=== PATIENT | male | born 1955 | race Caucasian/White ===

== ENCOUNTER 2016-10-23 17:08 | Emergency (ER) | payer MEDICARE, OTHER ==
[~2016-10-23] VITALS: Ht 177.8 cm; Wt 106.0 kg
[~2016-10-23 17:08] MED LIST: AMBIEN 10MG10 MG PO; ANTI-DIARRHEAL2 MG PO; ASPIRIN E.C. 8181 MG PO; ATROVENT NASAL15 ML NS; BIOFREEZE 0.2%-1 GE1 TOP; CELLCEPT 250MG250 MG PO; COLACE 100100 MG/CAP PO; COUMADIN 22.5 MG/TAB PO; COUMADIN 5MG5 MG/TAB PO; DOXYCYCLINE 10100 MG PO; DUO-KAPS1 CAP PO; ELIQUIS 5MG PO; FISH OIL SUPER1 SGL PO; K-DUR 10 MEQ T10 MEQ PO; LANTUS100 U/ML; LANTUS100 U/ML SQ; LIDODERM 5% PATC1 EA TP; NASAL SPRAY 1515 ML NS; NEURONTIN100 MG/CAP PO; NEURONTIN300 MG/CAP PO; NIZORAL SHAMPO120 M1 TP; NOVOLOG 100U100 U/M1; NOVOLOG 100U100 U/M1 SQ; NOXAFILTAB PO; OMEGA 31000 MG PO; OXY IR5 MG PO; PAIN PATCH; PHOSLO667 MG PO; PREDNISONE 5MG5 MG PO; PREDNISONE10 MG PO; PROAMATINE 5MG T5 MG PO; PROGRAF 1MG1 MG PO; PROTONIX 40MG T40 MG PO; PROVENTIL0.09 MG/A1 IH; RISPERDAL 0.20.25 MG PO; ROXICODONE 55 MG/TAB PO; RT SPIRIVA18 MCG IH; ULTRAM 50MG TAB50 MG PO; VENTOLIN0.09 MG IH; ZADITOR 5 ML5 ML OU; ZYLOPRIM 100MG100 MG PO; ZYRTEC 10MG10 MG PO
[2016-10-23 17:11] VITALS: TEMP 98
[2016-10-23] MEDS ORDERED: [UNRECOGNIZED DRUG - OTHER] PO (17:33)
[2016-10-23] MEDS ORDERED: COUMADIN 22.5 MG/TAB PO (17:38)
[2016-10-23] MEDS ORDERED: COUMADIN 5MG5 MG/TAB PO (17:38)
[2016-10-23 17:42] LABS: BASO % 0.4 % (0.0-2.0); EOS % 0.1 % (0-4.0); GRAN # 5.1 (1.4-6.5); GRAN % 69.7 % (42.2-75.2); HEMATOCRIT 47.1 % (42.0-52.0); HEMOGLOBIN 15.2 g/dl (13.5-18.0); LYMPH # 1.6 (1.2-3.4); LYMPH % 21.4 % (20.0-51.0); MEAN CELL VOLUME 109 fl (80.0-100.0); MEAN CORPUSCULAR HEMOGLOBIN 35 pg (27.0-31.0); MEAN CORPUSCULAR HGB CONC 32 g/dl (33.0-37.0); MEAN PLATELET VOLUME 11.9 fl (7.4-10.4); MONO # 0.6 (0.1-0.6); MONO % 8.3 % (1.7-9.3); PLATELET COUNT 166 K/mm3 (130-400); RED BLOOD COUNT 4.31 M/mm3 (4.20-5.60); REDCELL DISTRIBUTION WIDTH-CV 18.6 % (11.5-14.5); WHITE BLOOD COUNT 7.3 K/mm3 (4.8-10.8)
[2016-10-23 17:44] LABS: INR 2.6 (0.8-3.0); PROTHROMBIN TIME 30.1 SECONDS (9.7-12.8)
[2016-10-23 17:47] LABS: PARTIAL THROMBOPLASTIN TIME 38.1 SECONDS (26.0-37.0)
[2016-10-23 17:53] LABS: ALANINE AMINOTRANSFERASE 38 U/L (21-72); ALBUMIN 4.4 gm/dL (3.5-5.0); ALKALINE PHOSPHATASE 52 U/L (50-136); ANION GAP 21 mmol/L (7-16); BILIRUBIN,TOTAL 0.9 mg/dL (0.0-1.0); BLOOD UREA NITROGEN 100 mg/dL (9-20); CALCIUM 8.3 mg/dL (8.4-10.2); CARBON DIOXIDE 24 mmol/L (22-30); CHLORIDE 97 mmol/L (98-107); GLUCOSE 138 mg/dL (74-106); POTASSIUM 4.5 mmol/L (3.4-5.0); SODIUM 141 mmol/L (137-145); TOTAL PROTEIN 7.4 gm/dL (6.4-8.2)
[2016-10-23 18:01] LABS: TROPONIN-I 0.013 ng/mL (0.000-0.034)
[2016-10-23 18:03] LABS: C-REACTIVE PROTEIN < 0.5 mg/dL (0.0-0.9)
[2016-10-23 19:07] VITALS: BP 98/51; PULSE 74
== END 2016-10-23 19:07 | disposition home or self-care (01) ==
LOC: COL.ER 17:08
PROVIDERS: Family Medicine
DX: R13.10 Dysphagia, unspecified (principal); I25.10 Atherosclerotic heart disease of native coronary artery without angina pectoris; E11.9 Type 2 diabetes mellitus without complications; N18.9 Chronic kidney disease, unspecified; I95.9 Hypotension, unspecified; Z79.82 Long term (current) use of aspirin; Z79.4 Long term (current) use of insulin; Z79.01 Long term (current) use of anticoagulants

== ENCOUNTER → 2017-04-27 | Outpatient (CLI) | payer MEDICARE, OTHER ==
[~2017-04-27] MED LIST changes: +[UNRECOGNIZED DRUG - OTHER] PO
== END ==
LOC: BHSO 10:40
DX: F31.73 Bipolar disorder, in partial remission, most recent episode manic (principal)
CPT/HCPCS: G0463

== ENCOUNTER → 2017-05-25 | Outpatient (CLI) | payer MEDICARE, OTHER | LOC: BHSO 09:01 | DX: F31.9 Bipolar disorder, unspecified (principal) | CPT/HCPCS: G0463 ==

== ENCOUNTER → 2017-07-21 | Outpatient (CLI) | payer MEDICARE, OTHER | LOC: BHSO 09:03 | DX: F31.9 Bipolar disorder, unspecified (principal) | CPT/HCPCS: G0463 ==

== ENCOUNTER → 2017-10-26 | Outpatient (CLI) | payer MEDICARE, OTHER | LOC: BHSO 10:00 | DX: F31.81 Bipolar II disorder (principal) | CPT/HCPCS: G0463 ==

== ENCOUNTER → 2018-02-03 | Outpatient (CLI) | payer MEDICARE, OTHER | LOC: BHSO 15:15 | DX: F31.81 Bipolar II disorder (principal) | CPT/HCPCS: G0463 ==

== ENCOUNTER → 2018-06-06 | Outpatient (CLI) | payer MEDICARE, OTHER | LOC: BHSO 14:56 | DX: F06.32 Mood disorder due to known physiological condition with major depressive-like episode (principal) | CPT/HCPCS: G0463 ==

== ENCOUNTER → 2018-07-04 | Outpatient (CLI) | payer MEDICARE, OTHER | LOC: ZCOL.LAB 16:11 | DX: E11.621 Type 2 diabetes mellitus with foot ulcer (principal) ==

== ENCOUNTER → 2018-08-28 | Outpatient (CLI) | payer MEDICARE, OTHER | LOC: BHSO 13:24 | DX: F06.32 Mood disorder due to known physiological condition with major depressive-like episode (principal) | CPT/HCPCS: G0463 ==

== ENCOUNTER → 2018-11-07 | Outpatient (CLI) | payer MEDICARE, OTHER | LOC: BHSO 14:18 | DX: F06.32 Mood disorder due to known physiological condition with major depressive-like episode (principal) ==

== ENCOUNTER → 2019-01-03 | Outpatient (CLI) | payer MEDICARE, OTHER | LOC: BHSO 13:55 | DX: F06.32 Mood disorder due to known physiological condition with major depressive-like episode (principal) | CPT/HCPCS: G0463 ==

== ENCOUNTER → 2019-04-25 | Outpatient (CLI) | payer MEDICARE, OTHER | LOC: BHSO 14:21 | DX: F06.32 Mood disorder due to known physiological condition with major depressive-like episode (principal) | CPT/HCPCS: G0463 ==

== ENCOUNTER → 2019-05-30 | Outpatient (CLI) | payer MEDICARE, OTHER | LOC: BHSO 13:22 | DX: F06.32 Mood disorder due to known physiological condition with major depressive-like episode (principal) | CPT/HCPCS: G0463 ==

== ENCOUNTER → 2020-01-28 | Outpatient (CLI) | payer MEDICARE, OTHER | LOC: ZCOL.LAB 16:10 | DX: E11.621 Type 2 diabetes mellitus with foot ulcer (principal) ==

== ENCOUNTER → 2020-02-25 | Outpatient (CLI) | payer MEDICARE, OTHER | LOC: ZCOL.LAB 22:02 | DX: E13.621 Other specified diabetes mellitus with foot ulcer (principal); L97.509 Non-pressure chronic ulcer of other part of unspecified foot with unspecified severity ==

== ENCOUNTER → 2021-05-21 | Outpatient (CLI) | payer MEDICARE, OTHER | LOC: ZCOL.LAB 16:19 | DX: L84 Corns and callosities (principal); E13.621 Other specified diabetes mellitus with foot ulcer; L97.509 Non-pressure chronic ulcer of other part of unspecified foot with unspecified severity; Z74.1 Need for assistance with personal care ==

== ENCOUNTER → 2021-06-08 | Outpatient (RCR) | payer OTHER | END | disposition home or self-care (01) | LOC: WSPT | DX: E11.40 Type 2 diabetes mellitus with diabetic neuropathy, unspecified (principal); E11.22 Type 2 diabetes mellitus with diabetic chronic kidney disease; E78.5 Hyperlipidemia, unspecified; M10.9 Gout, unspecified; N18.9 Chronic kidney disease, unspecified; D63.1 Anemia in chronic kidney disease; Z89.439 Acquired absence of unspecified foot ==

== ENCOUNTER 2021-06-10 08:22 | Outpatient (RCR) | payer MEDICARE, OTHER | END 2021-07-09 | disposition home or self-care (01) | LOC: WSPT | DX: R53.1 Weakness (principal) ==

== ENCOUNTER → 2021-07-28 | Outpatient (CLI) | payer MEDICARE, OTHER ==
[2021-07-28 07:30] LABS: INR 1.4 (0.8-3.0)
== END ==
LOC: ZCOL.LAB 07:17
PROVIDERS: Nurse Practitioner
DX: I25.10 Atherosclerotic heart disease of native coronary artery without angina pectoris (principal)

== ENCOUNTER 2024-03-02 13:45 | Inpatient (IN) | payer MEDICARE, OTHER ==
[2024-03-02] MEDS ORDERED: NORCO 325 MG-51 TAB PO (16:25)
[2024-03-02] MEDS ORDERED: TYLENOL 325MG325 MG PO (16:26)
[2024-03-02] MEDS ORDERED: LIPITOR 40MG TA40 MG PO (16:29)
[2024-03-02] MEDS ORDERED: CALCITRIOL PO (16:30)
[2024-03-02] MEDS ORDERED: SARNA ANTI-ITC222 ML TP (16:30)
[2024-03-02] MEDS ORDERED: ARICEPT10 MG PO (16:32)
[2024-03-02] MEDS ORDERED: SILENOR6 MG PO (16:32)
[2024-03-02] MEDS ORDERED: AURYXIA1 GM PO (16:33)
[2024-03-02] MEDS ORDERED: ALLEGRA 180MG180 MG PO (16:34)
[2024-03-02] MEDS ORDERED: EPA FISH OIL1 SGL PO (16:35)
[2024-03-02] MEDS ORDERED: FLORINEF ACETA0.1 MG PO (16:35)
[2024-03-02] MEDS ORDERED: ZADITOR 5 ML5 ML OP (16:36)
[2024-03-02] MEDS ORDERED: FLONASEALLERGY NS (16:36)
[2024-03-02] MEDS ORDERED: LAMICTAL 25MG T25 MG PO (16:37)
[2024-03-02] MEDS ORDERED: PROAMATINE10 MG PO (16:38)
[2024-03-02] MEDS ORDERED: BACTROBAN15 GM TOP (16:39)
[2024-03-02] MEDS ORDERED: ZYPREXA 5MG5 MG PO (16:40)
[2024-03-02] MEDS ORDERED: RISPERDAL 1M1 MG/TAB PO (16:42)
[2024-03-02] MEDS ORDERED: LYRICA 75MG CAP75 MG PO (16:42)
[2024-03-02] MEDS ORDERED: SPIRIVA RE2.5 MCG/Ac IH (16:43)
[2024-03-02] MEDS ORDERED: RENVELA800 MG PO (16:43)
[2024-03-02 16:54] VITALS: BP 101/57; PULSE 81; TEMP 98.3
[2024-03-02] MEDS ORDERED: Acetaminophen 500 MG TAB PO PRN (17:30)
[2024-03-02] MEDS ORDERED: Ondansetron 4 MG/2 ML VIAL IV PRN (17:30)
--- NOTE | 2024-03-02 17:49 | NUR ---
Pt recently arrived to the unit. Assisted pt to pivot over to the chair. I did put a chair alarm on. Pt required 1-2 assist, but did okay. Pt denies having any pain at this time. I did orient him to his room and educated him on room service. I assisted him with ordering his dinner. Med rec completed per the medication list provided by Cecelia Robb. Dr Mann in recently to see pt. Pt is very talkative and is on the phone often. He just had a visitor arrive. No needs verbalized, call light within reach
[2024-03-02] MEDS ORDERED: OLANZapine 5 MG TAB PO PRN (18:00)
[2024-03-02] MEDS ORDERED: Dextrose (Glucose) 15 GM (4 x 3.75 GM) Chewable TABLET PACK PO PRN (18:30)
[2024-03-02] MEDS ORDERED: Dextrose 50% Water 25 GM/50 ML SYRINGE IV PRN (18:30)
[2024-03-02] MEDS ORDERED: Glucagon 1 MG VIAL IM PRN (18:30)
[2024-03-02 19:00] VITALS: BP_SYST 101
--- NOTE | 2024-03-02 20:00 | NUR ---
Pt. c/o pain rated 8/10. Scheduled meds and PRN Tylenol administered per JUN. Pt. appears and reports he is very aggitated. He is unhappy with being hospitalized and is unhappy about being placed on fall precautions. Pt. began shouting at this nurse, but was able to be consoled at this time. Shift assessment complete. Left stump is dressed and dressings are CDI. No further outstanding findings at this time. Needs and requests are met. Call light in reach and fall precautions in place.
[2024-03-02] MEDS ORDERED: Apixaban 5 MG TABLET PO SCH (21:00)
[2024-03-02] MEDS ORDERED: Donepezil 5 MG TAB PO SCH (21:00)
[2024-03-02] MEDS ORDERED: Doxepin 10 MG CAP PO SCH (21:00)
[2024-03-02] MEDS ORDERED: Atorvastatin 40 MG TAB PO SCH (21:00)
[2024-03-02] MEDS ORDERED: risperiDONE 1 MG TAB PO SCH (21:00)
[2024-03-02] MEDS ORDERED: Insulin Glargine-ygfn (Lantus) SQ SCH (21:00)
[2024-03-02] MEDS ORDERED: Fludrocortisone 0.1 MG TAB PO SCH (21:00)
[2024-03-02] MEDS ORDERED: Insulin Lispro (HumaLOG) SQ SCH (21:00)
--- NOTE | 2024-03-02 22:30 | NUR ---
Pt is growing increasingly aggitated. He is shouting at staff and throwing papers in his room. This nurse offered PRN Zyprexa and pt. refused. Charge nurse notified. After speaking with charge, pt states he "is calm now," and is agreeable to taking olanzapine. PRN Zyprexa administered per JUN.
[2024-03-03 05:47] LABS: BASO % 0.2 % (0.0-2.0); EOS % 0.2 % (0.0-4.0); GRAN # 3.8 K/mm3 (1.4-6.5); GRAN % 73.6 % (42.2-75.2); LYMPH % 18.8 % (20.0-51.0); MEAN CELL VOLUME 105 fl (80.0-100.0); MEAN CORPUSCULAR HGB CONC 30 g/dl (33.0-37.0); MEAN PLATELET VOLUME 11.1 fl (7.4-10.4); MONO # 0.4 K/mm3 (0.1-0.6); PLATELET COUNT 221 K/mm3 (130-400); RED BLOOD COUNT 3.08 M/mm3 (4.20-5.60); REDCELL DISTRIBUTION WIDTH-CV 17.3 % (11.5-14.5)
[2024-03-03 06:02] LABS: HEMATOCRIT 32.3 % (42.0-52.0); HEMOGLOBIN 9.8 g/dl (13.5-18.0); MEAN CORPUSCULAR HEMOGLOBIN 32 pg (27-31)
[2024-03-03 06:06] LABS: ALBUMIN 2.5 g/dL (3.4-4.8); ALKALINE PHOSPHATASE 85 U/L (40-150); ANION GAP 15 mmol/L (7-16); AST,SGOT 8 U/L (5-34); BILIRUBIN,TOTAL 0.5 mg/dL (0.2-1.2); BLOOD UREA NITROGEN 42 mg/dL (8-26); CALCIUM 8.8 mg/dL (8.4-10.2); CHLORIDE 98 mEq/L (98-107); CREATININE, serum 5.21 mg/dL (0.72-1.25); GLUCOSE 177 mg/dL (70-99); POTASSIUM 4.2 mEq/L (3.5-4.5); SODIUM 141 mEq/L (136-145); TOTAL PROTEIN 6.4 g/dl (6.2-8.1)
--- NOTE | 2024-03-03 06:08 | NUR ---
Pt's mood appears improved this morning. He was able to rest through the night following his earlier episode of aggitation. This morning he denies pain, needs, or requests. Call light in reach and fall precautions in place.
[2024-03-03 06:11] LABS: ALANINE AMINOTRANSFERASE < 6 U/L (0-55)
[2024-03-03 06:14] VITALS: BP 128/75; PULSE 88; TEMP 97.9
[2024-03-03 07:00] VITALS: BP_SYST 128
[2024-03-03] MEDS ORDERED: Sevelamer Carbonate 800 MG TAB PO SCH (08:00)
--- NOTE | 2024-03-03 08:00 | NUR ---
PT SITTING UP IN BED. ORIENTED X4. ASSESSMENT COMPLETE. MORNING MEDS GIVEN. NO COMPLAINTS AT THIS TIME. ASSISTED PT TO CHAIR. PT PIVOTED FROM BED TO CHAIR WITHOUT ISSUE. CHAIR ALARM ON, FALL PRECAUTIONS IN PLACE. CALL LIGHT IN REACH.
[2024-03-03] MEDS ORDERED: Calcitriol 0.25 MCG CAP PO SCH (09:00)
[2024-03-03] MEDS ORDERED: Tiotropium 2.5 MCG Respimat MDI IH SCH (09:00)
[2024-03-03] MEDS ORDERED: Pregabalin 75 MG CAP PO SCH (12:00)
--- NOTE | 2024-03-03 12:43 | NUR ---
Data: Patient accepted spiritual care visit offered during Supervisor Stage Carpentry rounds. Patient likes to be called Cornelius. Life review primarily around his spiritual journey and his amputations. Visit ended when RN arrived to give medications. Assessment: Patient is very positive, uplifting, outgoing about his Rastafarian nae. Plan of Care: Supervisor Stage Carpentry provided supportive listening; a devotional by Stewart Thomas. Chaplains will remain available as needed/requested while Patient is admitted to this hospital.
--- NOTE | 2024-03-03 14:36 | NUR ---
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 Shovel Log Loader Operator knows their Shovel Log Loader Operator. With Patient's permission, Shovel Log Loader Operator phoned him and asked if he could visit Patient sometime the upcoming week. He said that he could.
[2024-03-03 17:09] VITALS: BP 117/57; PULSE 84; TEMP 97.9
[2024-03-03 19:00] VITALS: BP_SYST 117
--- NOTE | 2024-03-03 23:55 | NUR ---
PT C/O SEVERE PAIN IN LLE AFTER GETTING INTO BED AND PUTTING BRACE ON LEG/STUMP, NORCO GIVEN FOR 10/18 PAIN SCORE, PT CALLED RN BACK TO ROOM AFTER 30 MINS, STATED " THE PAIN WAS NOT GETTING ANY BETTER UNTIL I TOOK THIS THING OFF, NOW ITS FINE" PT POINTING TO BRACE WHICH HE HAD REMOVED. LLE ELEVATED ON PILLOWS, PT WILL TALK WITH THERAPY OR PROVIDER ABOUT BRACE OPTIONS TOMORROW, FOR NOW, REFUSES TO WEAR IT.
[2024-03-04 06:36] VITALS: BP 127/75; PULSE 79
[2024-03-04 07:00] VITALS: BP_SYST 127
--- NOTE | 2024-03-04 08:00 | NUR ---
PT SITTING UP IN WHEELCHAIR. ORIENTED X4. ASSESSMENT COMPLETE. NC 2L. NO COMPLAINTS AT THIS TIME. CHAIR ALARM AND FALL PRECAUTIONS IN PLACE. CALL LIGHTIN REACH.
--- NOTE | 2024-03-04 08:30 | NUR ---
ASSISTED PT TO THE BATHROOM 2X ASSIST WITH GAITBELT. PT HAD A BM FORMED AND SOFT. REPORTS HE HAS HEMORROIDS. PROVIDED PT WITH BARRIER CREAM. CHANGED BRIEF AND PANTS. ASSISTED BACK TO WHEELCHAIR WITH AIDE. WHEELCHAIR ALARM ON.
--- NOTE | 2024-03-04 11:14 | NUR ---
Social Work met with patient to complete intake. Patient is able to clearly indicate his healthcare needs and healthcare history. Patient indicates a preference to be called "Cornelius" rather than Jay. Next of kin contact is Asha, his [phone]. Patient has a living will on file - dated 2014. Social work inquired about DPOA-HC and patient has one partially completed and needs two witnesses to complete. Social Work indicated that this Internal Audit Director and fellow weekend Internal Audit Director will return to witness his completion of the document. Patient also wants to update living will. Customer uses many forms of DME and some may be added prior to Discharge. At this time, patient uses portable O2, a CPAP, Walker, Wheelchair, Prosthetic due to recent amputation. Customer reports that he typically completes diaylsis at home, but as of recently he has been using [facility] outpatient dialysis in [place]. Patient PCP is Dr. Barr at [facility]. Customer may need some assistance with ADL's given his recent amputation. Customer reports he is "[facility] Patient uses [facility] for pharmacy and or [place] for medications. Patient lives with and Ruth, "my adopted daughter". Patient reports significant support from and Ruth. It is likely that patient may need home health pt/ot when returning home. Discharge Plan: To be determined
--- NOTE | 2024-03-04 12:08 | NUR ---
This Petroleum Inspector Supervisor and fellow SHANNON social media analyst, Ana, met with patient to serve as witnesses to his DPOA-HC and Living Will. Completed document with patient. Provided patient original completed document with four copies for him to distribute to his agents and his PCP. Copy of both documents placed on his chart under misc. tab. No further questions or needs indicated by patient. Patient states his plans for discharge are to return home. He reports his Bathroom and many things throughout his home are accessible with grab bars, etc. Discharge plan: Patient hopes to return home with home health and family support.
[2024-03-04 16:36] VITALS: BP 115/66; PULSE 75; TEMP 97.6
[2024-03-04 19:00] VITALS: BP_SYST 115
--- NOTE | 2024-03-05 01:43 | NUR ---
PT C/O PAIN IN LLE INCISION SITE FROM BRACE AFTER GETTING INTO BED, NORCO GIVEN FOR PAIN, PT REMOVED BRACE, ELEVATED EXTREMETY ON PILLOW. PT WAS PLACED ON CPAP PER RT AT BEDTIME, HOWEVER, HE STATES IT'S MAKING HIS ANXIETY TOO HIGH, CHANGED BACK TO O2 PER NC AT 2L, ZYPREXA GIVEN FOR AGITATION.
[2024-03-05 05:49] VITALS: BP 106/61; PULSE 86; TEMP 97.6
[2024-03-05 06:58] VITALS: BP_SYST 106
[2024-03-05] MEDS ORDERED: lamoTRIgine 25 MG TAB PO SCH (09:00)
[2024-03-05] MEDS ORDERED: Allopurinol 100 MG TAB PO SCH (09:00)
[2024-03-05] MEDS ORDERED: Loperamide 2 MG CAP PO PRN (13:30)
[2024-03-05] MEDS ORDERED: Heparin 1,000 UNITS/ML 10 ML Multi-Dose VIAL IV SCH (13:30)
[2024-03-05] MEDS ORDERED: NS 1,000 ML IV SCH (13:30)
--- NOTE | 2024-03-05 14:00 | NUR ---
Pt has done well with therapy. Pt requests to stay sitting up in the chair. Pt aware that the plan for dialysis is 4pm. Pt reports pain is tolerable at this time. He denies any needs, call light within reach
--- NOTE | 2024-03-05 15:09 | NUR ---
CAMPOS met with patient and provided Medicare.gov list of HH providers. CAMPOS left message for patient's to return call to schedule family meeting. called back and family meeting is scheduduled for Tuesday at 1030. Director notified of meeting time. Discharge plan: Home with HH
--- NOTE | 2024-03-05 16:06 | NUR ---
Pt getting very upset about his late dialysis time. Starting to state that he is going to refuse it from now on if it is this late. Pt requested a snack, I did give him peanut butter and dawson crackers per his request.
--- NOTE | 2024-03-05 16:28 | NUR ---
Pt down to dialysis at this time
--- NOTE | 2024-03-05 17:13 | NUR ---
Pt continues to be in dialysis. Took his dinner tray to him but he stated he wasn't going to eat it. Refused medications at this time as well
[2024-03-05 17:23] VITALS: BP 115/53; PULSE 94
[2024-03-05 18:41] VITALS: BP_SYST 115
--- NOTE | 2024-03-05 18:44 | NUR ---
Pt is now in a better mood and is requesting a dinner tray. I did just place an order for him and let him know that it will be about 45 minutes before it arrives
--- NOTE | 2024-03-05 21:21 | NUR ---
RT IN ROOM TO CHECK PT'S O2 SATURATION. PT UPSET. PT REFUSED CPAP FOR THE NIGHT STATING "IT KEPT ME UP HALF THE NIGHT". PT CANNOT WEAR HIS OWN CPAP DUE TO THE MASK MISSING. PT ALSO STATED HE DOES NOT WANT TO BE WAKEN UP AT NIGHT STATING "DO NOT POKE THE BEAR".
--- NOTE | 2024-03-05 22:34 | NUR ---
PT RESTING IN BED, ALERT AND ORIENTEDX4. ASSESSED PT. MOVED PT FROM WHEELCHAIR TO BED AFTER HE ATE SUPPER. NO COMPLAINTS OF PAIN AT THIS TIME. PT IS VERY AGITATED AND CLAIMS HE HAD A VERY BAD DAY. PT STATES "I WANT ME NIGHT MEDS AND THEN I WANT TO BE LEFT ALONE THE WHOLE REST OF THE NIGHT. NOBODY BETTER COME IN HERE AND WAKE ME UP UNTIL MORNING." GAVE PT NIGHT MEDS AND THEN LET HIM TRY TO GET SOME REST. NO OTHER COMPLAINTS AT THIS TIME. CALL LIGHT WITHIN REACH.
--- NOTE | 2024-03-06 05:05 | NUR ---
pt FELT HE HAD A PRETTY GOOD 2ND HALF OF THE SHIFT. pt REQUESTED THAT STAFF DO NOT COME INTO HIS ROOM FOR THE REST OF THE NIGHT. pt DID ALLOW STAFF TO COME IN HIS ROOM AFTER 0600HRS FOR VITALS AND MEDS. pt FOUND TO BE INCONTINENT OF BOWEL. pt CLEANED UP BY STAFF AND CLEAN BEDDING PLACED. pt THANKED STAFF FOR NOT DISTURBING HIM THROUGHOUT THE NIGHT. pt DENIED GENERAL PAIN, CHEST PAIN, PALPITATIONS, SOB, N,V,D OR DIZZINESS. FALL PRECAUTION IN PLACE. BED ALARM ON. CALL LIGHT WITHIN REACH.
[2024-03-06 06:06] VITALS: BP 100/56; PULSE 85; TEMP 98
[2024-03-06 07:00] VITALS: BP_SYST 100
--- NOTE | 2024-03-06 07:30 | NUR ---
PCT in bathroom with Pt. Pt had BM. No further needs at this time.
--- NOTE | 2024-03-06 08:07 | NUR ---
Pt sitting up in wheelchair. Transferred to bed. 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 Sutures are in tact and incision is WA. Applied ABD with kerlex and OSMAR bandage. A&Ox4. VSS. S1S2. Clear lungs on 1L O2 via NC. ABD round, soft, non-tender with audible bowel sounds. Pt denies n/v, headache, dizziness, pain. Palpable pulses in all extremities. INT in R forearm patent, no issues. Fistula with positive bruit and thrill. Pt reports he "is not going to do physical therapy today. I am going to let them have it." Talked to Pt about reason for being here is therapy. Pt agreed. Pt sitting up for breakfast in wheelchair. Chair alarm on.
--- NOTE | 2024-03-06 10:59 | NUR ---
SW sent clinicals to [facility] for referral. Discharge plan: Home with HH
[2024-03-06 17:24] VITALS: BP 136/74; PULSE 92; TEMP 98.6
[2024-03-06 19:00] VITALS: BP_SYST 111
[2024-03-06 19:50] VITALS: BP 111/64; PULSE 92; TEMP 97.7
--- NOTE | 2024-03-06 20:00 | NUR ---
1939- this RN notified by PCT that pt's family used the call light to notify them that pt had slipped out of wheel chair and onto buttock on the floor. PCT found pt on the floor. This RN notified Cyanide Case Hardener and attempt x2 to notifiy PATIENCE Crawford, vital recordered (see chart details) stable, this RN and PCt assist pt from sitting position on the floor back into wheel chair with gait belt still in use. this RN notified primary RN of event. 2149- PATIENCE Crawford notified of event and aware. pt denied hitting head. stable at this time.
--- NOTE | 2024-03-07 03:56 | NUR ---
PT IN WHEELCHAIR
[2024-03-07 05:31] VITALS: BP 108/55; PULSE 88; TEMP 97.6
[2024-03-07 07:00] VITALS: BP_SYST 108
--- NOTE | 2024-03-07 08:00 | NUR ---
PT SITTING UP IN WHEELCHAIR MAKING ROUNDS AROUND THE IPR FLOOR. RETURNED TO ROOM. ORIENTED X4. ASSESSMENT COMPLETE. MORNING MEDS GIVEN. REPORTS PAIN AT LEFT MID BACK. REMINDED PT HE HAS PRN PAIN MED IF NEEDED. DENIED AT THIS TIME. NO OTHER COMPLAINTS AT THIS TIME. FALL PRECAUTIONS IN PLACE. WHEELCHAIR ALARM ON.
--- NOTE | 2024-03-07 14:04 | NUR ---
SW attended team conference and discussed patient's progres with therapy and discharge needs. SW attended family meeting with Dr. Kapoor, Director Estefany, PT/OT/ST and dietitian with patient and his friend Gloria. Team reviewed progress with therapy and recommendations for discharge. Discharge date tentatively set for 03/15/24. SW met with patient to review notes from team conference and review information provided during family meeting. All questions answered. SW will continue to follow and coordinate with OR SW for discharge needs. Discharge plan: re-eval
[2024-03-07 17:25] VITALS: BP 130/81; PULSE 81; TEMP 97.5
--- NOTE | 2024-03-07 17:52 | NUR ---
Dialysis Note Pt arrived to tx via WC uf goal set for 1 kg and only 0.5 kg d/t drop in bp. Pt dcd back to room without complaints. VS WNL
[2024-03-07 19:00] VITALS: BP_SYST 130
--- NOTE | 2024-03-07 19:45 | NUR ---
Patient sitting in chair. Denies any pain at this time. Needs met. Assessment complete. IV in right forearm removed without complications. Assisted patient from chair into bed. Refused brace this evening stating it doesn't fit right and there is someone coming to help fix it tomorrow. Call light and personal items in reach. Bed in low position and bed alarm on.
[2024-03-08 06:05] VITALS: BP 113/64; PULSE 91; TEMP 98.1
[2024-03-08 07:00] VITALS: BP_SYST 113
--- NOTE | 2024-03-08 07:30 | NUR ---
PT A&OX4. VSS. NO C/O PAIN AT THIS TIME. CURRENTLY UP IN RECLINER EATING BREAKFAST. SHIFT ASSESSMENT COMPLETE AND MEDICATIONS ADMINISTERED. PT IS UP WITH ASSIST X1 W/ PIVOT TRANSFERS. PT ON 1L O2 VIA NC. NO FURTHER NEEDS AT THIS TIME. CALL LIGHT AND PERSONAL BELONGINGS WITHIN REACH.
[2024-03-08 17:32] VITALS: BP 115/68; PULSE 81; TEMP 98.1
[2024-03-08 19:15] VITALS: BP_SYST 115
[2024-03-09 06:00] VITALS: BP 121/66; PULSE 87; TEMP 97.4
[2024-03-09 07:00] VITALS: BP_SYST 121
--- NOTE | 2024-03-09 07:45 | NUR ---
Patient up in the wheelchair, A&Ox4. VSS. Denies pain and discomfort. LF lower leg sleeve, incision CDI. Call light within reach. chair alarm on
[2024-03-09 17:45] VITALS: BP 102/58; PULSE 71; TEMP 97.8
[2024-03-09 19:00] VITALS: BP_SYST 102
[2024-03-10 05:23] VITALS: BP 108/61; PULSE 78; TEMP 98
[2024-03-10 07:00] VITALS: BP_SYST 108
--- NOTE | 2024-03-10 09:06 | NUR ---
PT UP TO RECLINER FOR BREAKFAST. THEN TRANSFER TO AND ROLLING AROUND IN AND OUT OF ROOM. AM MEDS GIVEN ORDERED. GROUP THERAPY TO DAY @0930 .
[2024-03-10 18:00] VITALS: BP 150/74; PULSE 73; TEMP 97.5
[2024-03-10 19:11] VITALS: BP_SYST 150
[2024-03-11 05:13] VITALS: BP 116/65; PULSE 82; TEMP 97.8
[2024-03-11 07:00] VITALS: BP_SYST 166
--- NOTE | 2024-03-11 09:14 | NUR ---
PT ROLLING HALLS AND IN ROOM INDEPENDENTLY. ATE 100% OF BREAKFAT THIS AM. AM MEDS GIVEN ORDERED. PT DENIES NEEDS OR PAIN AT THIS TIME.
[2024-03-11 17:15] VITALS: BP 147/84; PULSE 63; TEMP 98.2
[2024-03-11 17:16] VITALS: BP 134/71; PULSE 75; TEMP 97.5
[2024-03-11 19:30] VITALS: BP_SYST 134
--- NOTE | 2024-03-11 19:31 | NUR ---
RECEIVED CHANGE OF SHIFT REPORT FROM DAY SHIFT NURSE. PATIENT UP IN W/C, PROPELS SELF IN ROOM AND HALLS WITH NO OBSERVABLE DIFFICULTY. DENIES ANY NEEDS AT TIME OF REPORT.
--- NOTE | 2024-03-12 02:51 | NUR ---
PATIENT WOKE AT AROUND 0130, REPORTING HE IS UNABLE TO GO BACK TO SLEEP. UP TO W/C PER PATIENT'S REQUEST. DENIES ANY NEEDS OR CONCERNS AT THIS TIME.
--- NOTE | 2024-03-12 03:09 | NUR ---
TRANSFER FROM W/C TO RECLINER. REQUESTED AND GIVEN PAIN MED, SEE MAR. OXYGEN CONTINUES PER NASAL CANNULA.
[2024-03-12 06:00] VITALS: BP 133/75; PULSE 83; TEMP 97.7
[2024-03-12 07:15] VITALS: BP_SYST 133
--- NOTE | 2024-03-12 08:15 | NUR ---
Patient up in wheelchair. Done with breakfast, frustrated by his restricted diet, reports still being hungry. Patient anxious/hopeful for discharge. to be made aware.
--- NOTE | 2024-03-12 14:33 | NUR ---
Patient sitting up in chair, aware of the delay in dialysis. Snack provided
--- NOTE | 2024-03-12 17:00 | NUR ---
Patient in dialysis with dialysis nurse caring for patient
--- NOTE | 2024-03-12 17:53 | NUR ---
SW met with pt to introduce self and discuss discharge plans. Pt reported that he is leaving the hospital "no matter what" on 03/14/24 because he has an appointment for his leg after dialysis. Pt reports no current needs. SW provided contact information if needs arise.
[2024-03-12 19:21] VITALS: BP_SYST 133
--- NOTE | 2024-03-12 19:23 | NUR ---
PT CURRENTLY IN DIALYSIS
--- NOTE | 2024-03-12 20:39 | NUR ---
Dialysis Note Pt arrived to dialysis via WC. Uf goal set for 2.0 kg 1 kg removed d/t drop in bp. pt dcd back to room via WC.
[2024-03-13 06:05] VITALS: BP 91/53; PULSE 81; TEMP 98.3
[2024-03-13 07:00] VITALS: BP_SYST 91
--- NOTE | 2024-03-13 08:00 | NUR ---
PT A&OX4. VSS. NO C/O PAIN AT THIS TIME. PT CURRENTLY UP IN W/C. PT ON 1L OF O2 VIA NC. SHIFT ASSESSMENT COMPLETE AND MEDICATIONS ADMINISTERED. PT TRANSFERS W/ ASSIST X1. NO FURTHER NEEDS AT THIS TIME. CALL LIGHT AND PERSONAL BELONGINGS WITHIN REACH.
[2024-03-13 17:03] VITALS: BP 116/68; PULSE 85; TEMP 97.9
--- NOTE | 2024-03-13 17:31 | NUR ---
CAMPOS notified by PT that pt requires left foot elevating footrest for personal wheelchair, brand name Medline. Dr. Paul Kapoor approves and signs Physician Order Form. CAMPOS faxes order form, PT/OT evaluations and progress notes to [facility]. SW f/u via secure message. [facility] indicate that they have not yet received the fax, though; SW received confirmation of submission at 1103. Taniya Lehman of [facility] verifies that pt needs the elevating leg rest and transfer boards. CAMPOS confirms this to be accurrate. [id number] - Lilibeth notifies this SW via secure chat that pt is not in their system and because of this, she cannot order supplies. CAMPOS calls to speak to [employer] for additional information on this request as pt is scheduled for discharge on 's date. CAMPOS inquires on a brand new wheelchair. CAMPOS informed that [facility] is out of wheelchairs until end of the week. CAMPOS visits with pt whose brother and were bedside. Pt confirms that his wheelchair brand is Medline. Pt reports that he purchased the wheelchair on [employer]. SW contacted [employer] and asked if specific wheelchair equipment was available. Staff member unsure and will call back tomorrow.
[2024-03-13 19:00] VITALS: BP_SYST 116
--- NOTE | 2024-03-13 22:46 | NUR ---
ASSESSMENT COMPLETED EARLIER. MEDICATIONS WERE ADMINISTERED PER EMAR. PT HAS NO COMPLAINTS AT THIS TIME. PT IS CURRENTLY ON O2 PER N/C. PT HAS NO COMPLAINTS OF SOA. VITALS ARE CURRENTLY NORMAL. BG WAS ELEVATED AND INSULIN WAS ADMINISTERED PER EMAR. PT WAS UP IN WHEELCHAIR TALKING TO STAFF. PT HAS NOW RETURNED TO HIS ROOM TO WATCH TV.
[2024-03-14 05:46] VITALS: BP 133/72; PULSE 83; TEMP 98.1
--- NOTE | 2024-03-14 05:57 | NUR ---
PT DOWN TO DIALYSIS
[2024-03-14 07:00] VITALS: BP_SYST 133
--- NOTE | 2024-03-14 07:30 | NUR ---
PT RECEIVING DIALYSIS, ORIENTED X4, ASSESSMENT COMPLETE. MORNING MEDS GIVEN. REPORTS PAIN TO LLE. PAIN MEDS GIVEN. NO OTHER COMPLAINTS AT THIS TIME. LEFT WITH DIALYSIS NURSE IN .
[2024-03-14] MEDS ORDERED: NORCO 325 MG-51 TAB PO (09:28)
--- NOTE | 2024-03-14 11:13 | NUR ---
DISCUSSED DISCHARGED PAPERWORK WITH PT. NO QUESTIONS OR CONCERNS AT THIST
--- NOTE | 2024-03-14 11:30 | NUR ---
DISCUSSED DISCHARGE PAPERWORK WITH PT. NO QUESTIONS OR CONCERNS AT THIS TIME. PT ASSISTED WITH SIGNIFICANT OTHER OUT TO CAR WITH ALL BELONGINGS. NO ISSUES.
--- NOTE | 2024-03-14 17:17 | NUR ---
CAMPOS has been discussing slide board options with [facility]. [facility] was to call this SW back this morning. 1012 - CAMPOS called Anna at [facility] and inquired on the slide boards that are currently needed. Anna stated that the boards would cost $47.30; however, there are none in stock at this time. 1110 - CAMPOS called [facility] for f/u on slide boards. CAMPOS was informed that pt will need to purchase out of pocket. [facility] agreed to order slide boards with an expected arrival day of 03/16/24-03/19/24. The total cost for both boards is $126.65 + tax. CAMPOS confirmed with pt and that he is able to afford this amount, which both agreed they could. CAMPOS provided contact information for [facility]. As pt was discharging the unit, pt's was on the telephone with [facility] to confirm.
--- NOTE | 2024-03-15 15:19 | NUR ---
Discharge QIM scores were reviewed by the team. Code of 3 chosen for toileting hygiene was determined by team discussion to be the most usual performance for this patient during the discharge assessment period. Code of 3 chosen for shower/bathe self was determined by team discussion to be the most usual performance for this patient during the discharge assessment period. Code of 3 chosen for lower body dressing was determined by team discussion to be the most usual performance for this patient during the discharge assessment period. Code of 4 chosen for lying to sitting was determined by team discussion to be the most usual performance for this patient during the discharge assessment period. Code of 4 chosen for sit to stand was determined by team discussion to be the most usual performance for this patient during the discharge assessment period. Code of 1 for car transfer was determined by team discussion to be the most usual performance for this patient during the discharge assessment period.--Estefany Ray, PD
--- NOTE | 2024-03-15 16:57 | NUR ---
SW received a telephone call from [facility] Lead Technologist In Cytogenetics, Kacie who informed this SW that [facility] declined referral. SW was not made aware of this. Kacie reported that she will speak with pt's PCP, Dr. Barr on 03/16/24 to discuss options. SW requested CC to call for further assistance and/or to communicate with pt on alternative options.
== END 2024-03-14 11:45 | disposition home health service (06) | DRG 559 ==
PROVIDERS: Internal Medicine; ADMIT Physical Medicine & Rehabilitation Sports Medicine
DX: Z47.81 Encounter for orthopedic aftercare following surgical amputation (principal); N18.6 End stage renal disease; I42.9 Cardiomyopathy, unspecified; J96.11 Chronic respiratory failure with hypoxia; I50.20 Unspecified systolic (congestive) heart failure; Q61.3 Polycystic kidney, unspecified; I13.2 Hypertensive heart and chronic kidney disease with heart failure and with stage 5 chronic kidney disease, or end stage renal disease; Z89.512 Acquired absence of left leg below knee; J44.9 Chronic obstructive pulmonary disease, unspecified; F31.9 Bipolar disorder, unspecified; I25.10 Atherosclerotic heart disease of native coronary artery without angina pectoris; E11.22 Type 2 diabetes mellitus with diabetic chronic kidney disease; Z99.2 Dependence on renal dialysis; G47.33 Obstructive sleep apnea (adult) (pediatric); R19.7 Diarrhea, unspecified; K21.9 Gastro-esophageal reflux disease without esophagitis; Z95.1 Presence of aortocoronary bypass graft; Z79.4 Long term (current) use of insulin; Z79.52 Long term (current) use of systemic steroids; Z79.891 Long term (current) use of opiate analgesic; Z79.899 Other long term (current) drug therapy; Z79.82 Long term (current) use of aspirin; Z86.711 Personal history of pulmonary embolism; Z86.718 Personal history of other venous thrombosis and embolism; Z79.01 Long term (current) use of anticoagulants; Z99.81 Dependence on supplemental oxygen; W05.0XXA Fall from non-moving wheelchair, initial encounter; Y92.239 Unspecified place in hospital as the place of occurrence of the external cause
CPT/HCPCS: A9270; J1644; J1720; J1815; Q3014